=== PATIENT | male | born 1995 | race Caucasian/White ===

== ENCOUNTER 2017-02-10 17:43 | Emergency (ER) | payer SELFPAY ==
[2017-02-10 18:02] VITALS: BP 108/65
[2017-02-10] MEDS ORDERED: Sulfamethox/Trimethoprim DS 800/160* TAB PO ONE (18:07)
[2017-02-10] MEDS ORDERED: oxyCODONE/Acetamin 5/325 MG* TAB PO ONE (18:07)
--- NOTE | 2017-02-10 18:25 | ED ---
Braxton Nix Angela, scribed for Lambert Wilson on 02/10/17 at 1810 . Skin Complaint - HPI Summary HPI Summary: This pt is a 21 y/o male presenting to [facility] c/o abscess and pain in cleft of buttocks. Pt has a PMHx of pilonidal cyst. He notes the last time he had one was 4-5 years ago. Pt rates his current pain 10 out of 10 in severity. Pt denies any other PMHx. - History of Current Complaint Chief Complaint: EDRashSkinAbscess Time Seen by Provider: 02/10/17 18:02 Stated Complaint: TAIL BONE PAIN Hx Obtained From: Patient Onset/Duration: Still Present Timing: Constant Current Severity: Severe Pain Intensity: 10 Pain Scale Used: 0-10 Numeric Skin Location: Other: - cleft of buttocks Aggravating Symptom(s): Nothing Alleviating Symptom(s): Nothing Related History: Other: - PMHx: pilonidal cyst - Allergy/Home Medications Allergies/Adverse Reactions: Allergies Allergy/AdvReac Type Severity Reaction Status Date / Time No Known Allergies Allergy Verified 11/17/15 21:29 PMH/Surg Hx/FS Hx/Imm Hx Endocrine/Hematology History: Denies: Hx Diabetes, Hx Thyroid Disease Cardiovascular History: Denies: Hx Hypertension Respiratory History: Reports: Hx Asthma Denies: Hx Chronic Obstructive Pulmonary Disease (COPD) GI History: Denies: Hx Ulcer Musculoskeletal History: Reports: Hx Scoliosis Neurological History: Reports: Other Neuro Impairments/Disorders - History of concussions - Surgical History Surgery Procedure, Year, and Place: Pionidal cyst, 05/2015 - Immunization History Date of Tetanus Vaccine: up to date per pt Infectious Disease History: No Infectious Disease History: Denies: Hx Clostridium Difficile, Hx Hepatitis, Hx Human Immunodeficiency Virus (HIV), Hx of Known/Suspected MRSA, Hx Shingles, Hx Tuberculosis, Hx Known/ Suspected VRSA, History Other Infectious Disease, Traveled Outside the [place] in Last 30 Days - Family History Known Family History: Positive: None Negative: Hypertension, Diabetes - Social History Alcohol Use: Occasionally Substance Use Type: Reports: None Hx Tobacco Use: Yes Smoking Status (MU): Light Every Day Tobacco Smoker Type: Cigarettes Amount Used/How Often: ONCE A WEEK Length of Time of Smoking/Using Tobacco: STILL USING TOBACOO Have You Smoked in the Last Year: Yes Review of Systems Negative: Fever, Chills Eyes: Negative ENT: Negative Cardiovascular: Negative Respiratory: Negative Gastrointestinal: Negative Genitourinary: Negative Musculoskeletal: Negative Positive: Other - abscess and pain on cleft of buttocks Neurological: Negative Psychological: Normal All Other Systems Reviewed And Are Negative: Yes Physical Exam Triage Information Reviewed: Yes Vital Signs On Initial Exam: Initial Vitals Temp Pulse Resp BP Pulse Ox 97.3 F 100 18 125/77 100 02/10/17 17:50 02/10/17 17:50 02/10/17 17:50 02/10/17 17:50 02/10/17 17:50 Vital Signs Reviewed: Yes Appearance: Positive: Well-Appearing, No Pain Distress Skin: Positive: Warm, Skin Color Reflects Adequate Perfusion, Dry, Other - There is mild swelling on the valentin cleft of the buttocks. There is mild redness over the swelling. There is no fluctuation. No current indication for I& D. Head/Face: Positive: Normal Head/Face Inspection Eyes: Positive: Normal ENT: Positive: Normal ENT inspection Neck: Positive: Supple, Nontender Respiratory/Lung Sounds: Positive: Clear to Auscultation, Breath Sounds Present Cardiovascular: Positive: RRR, Pulses are Symmetrical in both Upper and Lower Extremities Abdomen Description: Positive: Nontender, Soft Bowel Sounds: Positive: Present Musculoskeletal: Positive: Normal, Strength/ROM Intact Neurological: Positive: Normal, Sensory/Motor Intact, Alert, Oriented to Person Place, Time - Katie Coma Scale Coma Scale Total: 15 Diagnostics - Vital Signs Vital Signs Temp Pulse Resp BP Pulse Ox 02/10/17 18:02 91 95 02/10/17 17:57 97.7 F 94 18 108/65 95 02/10/17 17:50 97.3 F 100 18 125/77 100 - Laboratory Lab Statement: Any lab studies that have been ordered have been reviewed, and results considered in the medical decision making process. Course/Dx - Course Assessment/Plan: This pt is a 21 y/o male presenting to [facility] c/o abscess and pain in cleft of buttocks. Pt has a PMHx of pilonidal cyst. On exam, there is mild swelling on the valentin cleft of the buttocks. There is mild redness over the swelling. There is no fluctuation. No current indication for I&D at this time. Pt will be discharged and is advised to follow up with surgery for further management. - Diagnoses Provider Diagnoses: Pilonidal cyst without abscess Discharge - Discharge Plan Condition: Stable Disposition: HOME Prescriptions: Ibuprofen TAB* [Motrin TAB* 600 MG] 600 mg PO Q8H PRN #20 tab MDD 3 PRN Reason: Pain Sulfamethox/Trimethoprim DS* [Bactrim DS 800/160 TAB*] 1 tab PO BID #20 tab oxyCODONE/Acetamin 5/325 MG* [Percocet 5/325 TAB*] 1 tab PO Q8H PRN #12 tab MDD 3 PRN Reason: Pain Patient Education Materials: Pilonidal Cyst (ED) Referrals: Blake Barragan MD [Primary Care Provider] - Milton Gaytan MD [Medical Doctor] - Additional Instructions: Please call and follow up with Dr. Gaytan, surgeon, for further management. The documentation as recorded by the Braxton cervantes Angela accurately reflects the service I personally performed and the decisions made by Katie farmer Emmanuel.
== END 2017-02-10 18:29 | disposition home or self-care (01) ==
LOC: ED 17:43
DX: L05.91 Pilonidal cyst without abscess (principal)
CPT/HCPCS: 99282; A9270-GY

== ENCOUNTER 2017-02-15 11:58 | Emergency (ER) | payer SELFPAY ==
[2017-02-15] MEDS ORDERED: Ketorolac INJ* 60 MG/2 ML VIAL IM ONE (13:06)
[2017-02-15] MEDS ORDERED: metroNIDAZOLE TAB* 250 MG PO ONE (13:21)
[2017-02-15] MEDS ORDERED: Cephalexin CAP* 500 MG PO ONE (13:21)
[2017-02-15 13:42] LABS: Hematocrit 41 % (42-52); Hemoglobin 14.6 g/dl (14.0-18.0); Mean Corpuscular HGB Conc 35 g/dl (31-36); Mean Corpuscular Hemoglobin 30 pg (27-31); Mean Corpuscular Volume 83 fL (80-94); Mean Platelet Volume 9 um3 (7.4-10.4); Red Blood Count 4.94 10^6/ul (4.0-5.4); Red Cell Distribution Width 13 % (10.5-15); White Blood Count 5.5 10^3/ul (3.5-10.8)
[2017-02-15 13:55] LABS: Albumin 4.2 g/dL (3.2-5.2); BUN/Creatinine Ratio 14.1 (8-20); C Reactive Protein 3.17 mg/L (< 5.00); EGFR African American 158.6 (>60); EGFR Non-African American 123.3 (>60); Globulin 2.5 g/dL (2-4); Potassium 3.6 mmol/L (3.5-5.0); Total Bilirubin 0.5 mg/dL (0.2-1.0); Total Protein 6.7 g/dL (6.4-8.9)
[2017-02-15 14:18] VITALS: BP 130/69
--- NOTE | 2017-03-03 02:52 | ED ---
Carli Nix Thomas, scribed for Ella Spencer MD on 02/15/17 at 1247 . Skin Complaint - HPI Summary HPI Summary: The pt is a 21 y/o M accompanied by his fianc and presenting to the ED c/o a pain to his tailbone that began on 02/10/17. He was a patient at [facility] ED on 02/10 and diagnosed with a pilonidal cyst. At that visit, he was prescribed Bactrim and was instructed to follow up with surgery. However, the patient was unable to fill this prescription for Bactrim and he did not follow up with surgery. The pt rates the pain 8/10. The pain is aggravated by movement and is alleviated by lying on his back. The patient has not treated the pain with any OTC medications [employer]. The patient reports that after he left the ED on 02/10/17, he applied a hot compress to the tailbone area and there was purulent and bloody drainage for two hours that spontaneously resolved. He denies ever squeezing the area. He reports that the swelling did not shrink. The patient presents to the ED again because yesterday he reports that his legs gave out, his legs "went completely out", and he fell three times. The patient had a pilonidal cyst in 2013 that was removed by Dr. Hunter in the operating room. He was not put on antibiotics after this removal. His last meal was [employer] (6 inch sub) at 11:30 today. He does not take any daily medication. PMHx: pilonidal cyst (2013), scoliosis, asthma. PSHx: pilonidal cyst removal. SHx: smoking, occasional alcohol use, no illicit drug use. He is employed as a cook at [employer]. Patients medication reviewed this visit. He is uninsured and reports that he did not fill his Bacrim or follow up with surgery because he was concerned with the costs of these treatments. I reviewed the patients chart from 02/10/17 prior to evaluating the patient. - History of Current Complaint Chief Complaint: EDRashSkinAbscess Time Seen by Provider: 02/15/17 12:28 Stated Complaint: CYST RECHECK Hx Obtained From: Patient, Family/[place] [employer] - fiance in room, Medical Records Onset/Duration: Started Days Ago - onset 02/10/17, Still Present, Worse Since - Symptoms worsened yesterday Timing: Constant Onset Severity: Moderate Current Severity: Severe Pain Intensity: 8 Pain Scale Used: 0-10 Numeric Skin Location: Other: - Pilonidal cyst Character: Swelling, Pain, Raised, Painful Aggravating Symptom(s): Touch Alleviating Symptom(s): Nothing, Other: - Lying on the side Associated Signs & Symptoms: Drainage - on 02/10/17, purulent and bloody, Tenderness Related History: Other: - Prior pilonidal cyst with OR removal in 2013 Similar Episode/Dx as: Prior pilonidal cyst - Allergy/Home Medications Allergies/Adverse Reactions: Allergies Allergy/AdvReac Type Severity Reaction Status Date / Time No Known Allergies Allergy Verified 02/15/17 12:06 PMH/Surg Hx/FS Hx/Imm Hx Previously Healthy: No - Hx Pilonidal cyst (2013) Endocrine/Hematology History: Denies: Hx Diabetes, Hx Thyroid Disease Cardiovascular History: Denies: Hx Hypertension Respiratory History: Reports: Hx Asthma Denies: Hx Chronic Obstructive Pulmonary Disease (COPD) GI History: Denies: Hx Ulcer Musculoskeletal History: Reports: Hx Scoliosis Neurological History: Reports: Other Neuro Impairments/Disorders - History of concussions - Surgical History Surgery Procedure, Year, and Place: Pionidal cyst, 05/2015 - Immunization History Date of Tetanus Vaccine: up to date per pt Infectious Disease History: No Infectious Disease History: Denies: Hx Clostridium Difficile, Hx Hepatitis, Hx Human Immunodeficiency Virus (HIV), Hx of Known/Suspected MRSA, Hx Shingles, Hx Tuberculosis, Hx Known/ Suspected VRSA, History Other Infectious Disease, Traveled Outside the [place] in Last 30 Days - Family History Known Family History: Negative: Hypertension, Diabetes, Other - NEG: [place]. Both parents are alive and well. Grandmother (old age). - Social History Occupation: Employed Full-time Alcohol Use: Occasionally Substance Use Type: Reports: None Hx Tobacco Use: Yes Smoking Status (MU): Light Every Day Tobacco Smoker Type: Cigarettes Amount Used/How Often: ONCE A WEEK Length of Time of Smoking/Using Tobacco: STILL USING TOBACOO Have You Smoked in the Last Year: Yes Review of Systems Negative: Fever Cardiovascular: Negative Respiratory: Negative Gastrointestinal: Negative Positive: Other - POS: pilonidal cyst, drainage (purulent and bloody, on ), no drainage since Neurological: Negative Psychological: Normal All Other Systems Reviewed And Are Negative: Yes Physical Exam Triage Information Reviewed: Yes Vital Signs On Initial Exam: Initial Vitals Temp Pulse Resp BP Pulse Ox 97.8 F 77 14 148/79 100 02/15/17 12:02 02/15/17 12:02 02/15/17 12:02 02/15/17 12:02 02/15/17 12:02 Vital Signs Reviewed: Yes Appearance: Positive: Well-Appearing, Well-Nourished, Pain Distress Skin: Positive: Warm, Skin Color Reflects Adequate Perfusion, Dry, Other - There is swelling 6cm x 2cm in right valentin cleft. There is no erythema and no fluctuance Head/Face: Positive: Normal Head/Face Inspection Eyes: Positive: Conjunctiva Clear ENT: Positive: Normal ENT inspection Neck: Positive: Supple Respiratory/Lung Sounds: Positive: Clear to Auscultation, Breath Sounds Present , Other - No respiratory distress Cardiovascular: Positive: RRR, Pulses are Symmetrical in both Upper and Lower Extremities, Other - Brisk cap refill. Negative: Murmur Abdomen Description: Positive: Nontender, Soft Bowel Sounds: Positive: Present Musculoskeletal: Positive: Strength/ROM Intact Neurological: Positive: Sensory/Motor Intact, Alert, Oriented to Person Place, Time, CN Intact II-III, Reflexes Intact, Facial Symmetry, Speech Normal, Other - Motor function 5/5. Sensations intact. Gait WNL. No leg weakness noted Psychiatric: Positive: Normal Diagnostics - Vital Signs Vital Signs Temp Pulse Resp BP Pulse Ox 02/15/17 12:02 97.8 F 77 14 148/79 100 - Laboratory Lab Results: Lab Results 02/15/17 02/15/17 Range/Units 13:25 13:25 WBC 5.5 (3.5-10.8) 10^3/ul RBC 4.94 (4.0-5.4) 10^6/ul Hgb 14.6 (14.0-18.0) g/dl Hct 41 L (42-52) % MCV 83 (80-94) fL MCH 30 (27-31) pg MCHC 35 (31-36) g/dl RDW 13 (10.5-15) % Plt Count 236 (150-450) 10^3/ul MPV 9 (7.4-10.4) um3 Neut % (Auto) 64.0 (38-83) % Lymph % (Auto) 27.0 (25-47) % [place] % (Auto) 6.9 (1-9) % Eos % (Auto) 1.8 (0-6) % Baso % (Auto) 0.3 (0-2) % Absolute Neuts (auto) 3.6 (1.5-7.7) 10^3/ul Absolute Lymphs (auto) 1.5 (1.0-4.8) 10^3/ul Absolute Monos (auto) 0.4 (0-0.8) 10^3/ul Absolute Eos (auto) 0.1 (0-0.6) 10^3/ul Absolute Basos (auto) 0 (0-0.2) 10^3/ul Absolute Nucleated RBC 0 10^3/ul Nucleated RBC % 0 Sodium 137 (133-145) mmol/L Potassium 3.6 (3.5-5.0) mmol/L Chloride 106 (101-111) mmol/L Carbon Dioxide 26 (22-32) mmol/L Anion Gap 5 (2-11) mmol/L BUN 11 (6-24) mg/dL Creatinine 0.78 (0.67-1.17) mg/dL Est GFR ( Amer) 158.6 (>60) Est GFR (Non-Af Amer) 123.3 (>60) BUN/Creatinine Ratio 14.1 (8-20) Glucose 117 H (70-100) mg/dL Calcium 9.0 (8.6-10.3) mg/dL Total Bilirubin 0.50 (0.2-1.0) mg/dL AST 11 L (13-39) U/L ALT 14 (7-52) U/L Alkaline Phosphatase 44 (34-104) U/L C-Reactive Protein 3.17 (< 5.00) mg/L Total Protein 6.7 (6.4-8.9) g/dL Albumin 4.2 (3.2-5.2) g/dL Globulin 2.5 (2-4) g/dL Albumin/Globulin Ratio 1.7 (1-3) Result Diagrams: 02/15/17 13:25 02/15/17 13:25 Lab Statement: Any lab studies that have been ordered have been reviewed, and results considered in the medical decision making process. Re-Evaluation - Re-Evaluation First Eval Re-Evaluation Time: 13:48 Change: Improved Comment: The patient's pain has improved. Course/Dx - Course Assessment/Plan: The pt is a 21 y/o M with a pilonidal cyst that began on . He was seen at [facility] ED on that date and diagnosed with a pilonidal cyst, but he did not fill his Bactrim prescription or follow up due to his lack of insurance. The cyst had purulent and bloody drainage after he left the ED on 09/23, and he presents to the ED with a worsening of his symptoms last night. I consulted UpToDate regarding antibiotics and the website states that coverage for anaerobes includes first generation cephalosporin and Metronidazole, but there are no definitive data to support antibiotic therapy in the management of the patient with an acute abscess or chronic pilonidal disease without cellulitis. Re-evaluation at 13:48 shows the patient is without pain. In the ED the patient was given Cephalexin, Toradol, and Metronidazole. Bloodwork shows Hct 41, AST 11. I also consulted with Dr. Ruvalcaba, surgery, who instructs the patient to follow up at her office on Friday02/17/17 or Friday02/18/17. He is diagnosed with a pilonidal cyst and is discharged home with a prescription of Keflex and Flagyl. Patient is agreeable to this plan. Pt is advised that these antibiotics are generic and not expensive. - Differential Diagnoses - Skin Complaint Differential Diagnoses: Abscess, Cellulitis, MRSA, Other - pilonidal cyst - Diagnoses Provider Diagnoses: Pilonidal cyst, Elevated BP without diagnosis of hypertension - Physician Notifications Discussed Care Of Patient With: Karma Ruvalcaba Time Discussed With Above Provider: 13:03 Instructed by Provider To: Other - I consulted with Dr. Ruvalcaba, surgery, regarding patient care. She says that she would be happy to see the patient in the office or in the ED, whatever is indicated. Based on my description of pt's exam we determine that pt is appropriate for close office follow up in 1-2 days. Discharge - Discharge Plan Condition: Stable Disposition: HOME Prescriptions: Cephalexin CAP* [Keflex 500 CAP*] 500 mg PO QID #40 cap Metronidazole [Flagyl 500 MG TAB] 500 mg PO TID #1 tab Patient Education Materials: Pilonidal Cyst (ED) Forms: *Gen. Provider Communication, *Work Release Referrals: Karma Ruvalcaba MD [Medical Doctor] - 2 Days Additional Instructions: Call the surgery office on Friday02/17/17 and arrange to be seen urgently on Friday or Friday. Dr. Spencer discussed this with Dr. Ruvalcaba in the ER. Take the antibiotics as directed. Use warm compresses 4 times a day. Try a donut cushion. Use ibuprofen as directed for pain. Return to the ER if any new or worsening symptoms. The documentation as recorded by the Carli cervantes Thomas accurately reflects the service I personally performed and the decisions made by , Ella Spencer MD.
== END 2017-02-15 14:17 | disposition home or self-care (01) ==
LOC: ED 11:58
DX: L05.91 Pilonidal cyst without abscess (principal); R03.0 Elevated blood-pressure reading, without diagnosis of hypertension; F17.210 Nicotine dependence, cigarettes, uncomplicated
CPT/HCPCS: 36415; 80053; 85025; 86140; 96372; 99282; A9270-GY; J1885

== ENCOUNTER 2017-11-17 08:52 | Emergency (ER) | payer OTHER ==
[2017-11-17] MEDS ORDERED: predniSONE TAB* 20 MG PO ONE (09:25)
[2017-11-17] MEDS ORDERED: oxyCODONE/Acetamin 5/325 MG* TAB PO ONE (09:25)
[2017-11-17] MEDS ORDERED: Ketorolac INJ* 60 MG/2 ML VIAL IM ONE (09:25)
[2017-11-17 11:40] VITALS: BP 125/76
--- NOTE | 2017-11-17 18:51 | ED ---
Braxton Nix Angela, scribed for Ryan Espana MD on 11/17/17 at 0922 . Back Pain - HPI Summary HPI Summary: This pt is a 22 y/o male, accompanied by his fiance and 2 sons, presenting to [facility] c/o bilateral back pain for the past 3 days. 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 He notes his pain has progressively worsened over the past few days. Pt additionally reports he intermittently loses "feeling" of legs and arms. His pain is aggravated with standing, bending, lifting up things. Pt's pain is alleviated with rest. Pt states he is able to ambulate with assistance. Denies urinary or bowel incontinence, fever, abd pain. Pt has taken ibuprofen and Tylenol with no relief. He went to [facility] 2 days ago and was given a shot (unknown what medications it was). PMHx: scoliosis. Pt has had an MRI in the past, about 10 years ago. NKDA. Pt is a current smoker. - History of Current Complaint Chief Complaint: EDBackInjuryPain Stated Complaint: BACK PAIN Time Seen by Provider: 11/17/17 09:03 Hx Obtained From: Patient Onset/Duration: Lasting Days, Still Present Onset/Duration: Started Days Ago, Atraumatic, Still Present Timing: Lasting Days Back Pain Location: Is Discrete @ - low back Severity Currently: Severe Pain Intensity: 8 Pain Scale Used: 0-10 Numeric Aggravating Symptom(s): Lifting, Bending, Walking Alleviating Symptom(s): Rest Associated Signs And Symptoms: Positive: Other - POS: losing sensation of arms and legs.. Negative: Swelling, Redness, Fever, Weakness, Abdominal Pain, Bladder Incontinence, Bowel Incontinence - Allergies/Home Medications Allergies/Adverse Reactions: Allergies Allergy/AdvReac Type Severity Reaction Status Date / Time No Known Allergies Allergy Verified 11/17/17 08:58 PMH/Surg Hx/FS Hx/Imm Hx Endocrine/Hematology History: Denies: Hx Diabetes, Hx Thyroid Disease Cardiovascular History: Denies: Hx Hypertension Respiratory History: Reports: Hx Asthma Denies: Hx Chronic Obstructive Pulmonary Disease (COPD) GI History: Denies: Hx Ulcer Musculoskeletal History: Reports: Hx Scoliosis Neurological History: Reports: Other Neuro Impairments/Disorders - History of concussions - Surgical History Surgery Procedure, Year, and Place: Crystal cyst, 05/2015 - Immunization History Date of Tetanus Vaccine: up to date per pt Infectious Disease History: No Infectious Disease History: Denies: Hx Clostridium Difficile, Hx Hepatitis, Hx Human Immunodeficiency Virus (HIV), Hx of Known/Suspected MRSA, Hx Shingles, Hx Tuberculosis, Hx Known/ Suspected VRSA, History Other Infectious Disease, Traveled Outside the [place] in Last 30 Days - Family History Known Family History: Negative: Hypertension, Diabetes, Other - NEG: [place]. Both parents are alive and well. Grandmother (old age). - Social History Alcohol Use: Occasionally Substance Use Type: Reports: None Hx Tobacco Use: Yes Smoking Status (MU): Light Every Day Tobacco Smoker Type: Cigarettes Amount Used/How Often: ONCE A WEEK Length of Time of Smoking/Using Tobacco: STILL USING TOBACOO Have You Smoked in the Last Year: Yes Review of Systems Negative: Fever, Chills Negative: Erythema Negative: Sore Throat Negative: Chest Pain Negative: Shortness Of Breath, Cough Negative: Abdominal Pain, Vomiting, Nausea Negative: dysuria, hematuria, incontinence - urinary or bowel Musculoskeletal: Other - back pain Negative: Myalgia, Edema Negative: Rash Neurological: Other - NEG: dizziness. POS: losing sensation of arms and legs Negative: Weakness All Other Systems Reviewed And Are Negative: Yes Physical Exam - Summary Physical Exam Summary: Constitutional: Well-developed, Well-nourished, Alert. (-) Distressed Skin: Warm, Dry HENT: Normocephalic; Atraumatic Eyes: Conjunctiva normal Neck: Musculoskeletal ROM normal neck. (-) JVD, (-) Stridor, (-) Tracheal deviation Cardio: Rhythm regular, rate normal, Heart sounds normal; Intact distal pulses; The pedal pulses are 2+ and symmetric. Radial pulses are 2+ and symmetric. (-) Murmur Pulmonary/Chest wall: Effort normal. (-) Respiratory distress, (-) Wheezes, (-) Rales Abd: Soft, (-) Tenderness, (-) Distension, (-) Guarding, (-) Rebound Musculoskeletal: (-) Edema. Straight leg raise on the left. Lower extremity strength is symmetric and 2+ reflexes. Lymph: (-) Cervical adenopathy Neuro: Alert, Oriented x3 Psych: Mood and affect Normal Triage Information Reviewed: Yes Vital Signs On Initial Exam: Initial Vitals Temp Pulse Resp BP Pulse Ox 97.6 F 66 16 125/84 100 11/17/17 08:53 11/17/17 08:53 11/17/17 08:53 11/17/17 08:53 11/17/17 08:53 Vital Signs Reviewed: Yes Diagnostics - Vital Signs Vital Signs Temp Pulse Resp BP Pulse Ox 11/17/17 08:53 97.6 F 66 16 125/84 100 - Laboratory Lab Statement: Any lab studies that have been ordered have been reviewed, and results considered in the medical decision making process. Re-Evaluation - Re-Evaluation First Eval Re-Evaluation Time: 11:11 Comment: Pt is feeling better. He will be discharged home. Back Pain Course/Dx - Course Assessment/Plan: Pt is a 22 y/o male, with hx of scoliosis, who presents with bilateral back pain for the past 3 days. 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 He notes his pain has progressively worsened over the past few days. Pt additionally reports he intermittently loses "feeling" of legs and arms. His pain is aggravated with standing, bending, lifting up things. Pt's pain is alleviated with rest. Pt states he is able to ambulate with assistance. Denies urinary or bowel incontinence, fever, abd pain. In the ED course the pt was given Toradol, percocet, prednisone. On re-evaluation pt is feeling better. Pt will be discharged home with follow up from Dr. Chatman in 2-3 days. He was given prescriptions for lidocaine patch, naproxen, percocet, and prednisone. He was instructed to return to the ED for any worsening symptoms. - Diagnoses Provider Diagnoses: Sciatica Discharge - Sign-Out/Discharge Documenting (check all that apply): Discharge/Admit/Transfer - Discharge - Discharge Plan Condition: Stable Disposition: HOME Prescriptions: Lidocaine PATCH 5%* [Lidoderm 5% Patch*] 1 patch TRANSDERM DAILY #30 patch Naproxen TAB* [Naprosyn 250 mg TAB*] 500 mg PO Q8H PRN #30 tab PRN Reason: Pain - Moderate To Severe oxyCODONE/Acetamin 5/325 MG* [Percocet 5/325 TAB*] 1 - 2 tab PO Q6H PRN #20 tab MDD 8 PRN Reason: Pain - Moderate To Severe predniSONE TAB* [Deltasone TAB*] 50 mg PO DAILY #4 tab Patient Education Materials: Sciatica (ED) Forms: *Work Release Referrals: [facility] [Outside] [facility] [Outside] Jamil Chatman MD [Medical Doctor] - Additional Instructions: Follow up with Dr. Chatman, neurosurgeon, in 2-3 days. Establish a primary care provider through [facility] and follow up in 2-3 days. RETURN TO THE EMERGENCY DEPARTMENT FOR CHANGING OR WORSENING SYMPTOMS. The documentation as recorded by the Braxton cervantes Angela accurately reflects the service I personally performed and the decisions made by , Ryan Espana MD.
== END 2017-11-17 11:39 | disposition home or self-care (01) ==
LOC: ED 08:52
DX: M54.42 Lumbago with sciatica, left side (principal); M54.41 Lumbago with sciatica, right side; J45.909 Unspecified asthma, uncomplicated; M41.9 Scoliosis, unspecified; F17.210 Nicotine dependence, cigarettes, uncomplicated
CPT/HCPCS: 96372; 99282; A9270-GY; J1885; J7512